=== PATIENT | male | born 1995 | race Caucasian/White ===

== ENCOUNTER 2018-10-26 14:39 | Emergency (ER) | payer MEDICAID ==
[~2018-10-26] VITALS: Ht 177.8 cm; Wt 72.6 kg
[2018-10-26 15:00] VITALS: BP 115/66
--- NOTE | 2018-10-26 15:00 | NUR ---
ED Nurse Note: Pt came in due to having discharge from an unprotected sex with a partner other than " a couple months ago" and suspects STD. Here for check up. seen by goran mathur. will continue to monitor.
--- NOTE | 2018-10-26 15:15 | NUR ---
ED Nurse Note: pt able to give urine sample and sent to lab.
--- NOTE | 2018-10-26 16:43 | Emergency Room Report ---
History of Present Illness General Chief Complaint: Male Urogenital Problems Source: Patient Present Illness HPI 23-year-old male presents to the emergency department concern for exposure to possible STD. Patient denies dysuria, penile discharge, rashes, lesions, testicular pain or swelling, swollen tender lymph nodes or joint pain. Patient states that his began having vaginal discharge and he believes this may be secondary to him having unprotected intercourse with other women. Denies fevers or chills he is requesting D&C testing as well as treatment. No other complaints at this time no aggravating or relieving factors. He denies dysuria , urinary frequency, urgency or pyuria. Allergies: Coded Allergies: No Known Allergies (Unverified , 10/26/18) Patient History Past Medical History: see triage record Past Surgical History: none Pertinent Family History: none Reviewed Nursing Documentation: PMH: Agreed; PSxH: Agreed Nursing Documentation-PMH Past Medical History: No Stated History Review of Systems All Other Systems: negative except mentioned in HPI Physical Exam Vital Signs Date Time Temp Pulse Resp B/P (MAP) Pulse Ox O2 Delivery O2 Flow Rate FiO2 10/26/18 14:46 98.6 93 20 115/66 (82) 98 Room Air Sp02 EP Interpretation: reviewed, normal General Appearance: no apparent distress, alert, GCS 15, non-toxic Head: normocephalic, atraumatic Eyes: bilateral eye normal inspection, bilateral eye PERRL ENT: hearing grossly normal, normal voice Neck: full range of motion Respiratory: lungs clear, normal breath sounds, speaking full sentences Cardiovascular #1: regular rate, rhythm Gastrointestinal: non tender, soft, non-distended, no guarding Rectal: deferred Genitourinary: normal inspection, no CVA tenderness, deferred Musculoskeletal: back normal, gait/station normal, normal range of motion, non- tender Neurologic: alert, oriented x3, responsive, motor strength/tone normal, sensory intact, speech normal, grossly normal Psychiatric: judgement/insight normal Skin: no rash Medical Decision Making PA Attestation Dr. Chong Is my supervising Physician whom patient management has been discussed with. Diagnostic Impression: Primary Impression: Contact with and (suspected) exposure to infections with a predominantly sexual mode of transmission ER Course 23-year-old male presents to the emergency department concern for exposure to possible STD. Patient denies dysuria, penile discharge, rashes, lesions, testicular pain or swelling, swollen tender lymph nodes or joint pain. Patient states that his began having vaginal discharge and he believes this may be secondary to him having unprotected intercourse with other women. Denies fevers or chills he is requesting D&C testing as well as treatment. No other complaints at this time no aggravating or relieving factors. He denies dysuria , urinary frequency, urgency or pyuria. Ddx considered but are not limited to UTi , Urethritis, LGV, STI, Stone, Cystitis, prostatitis Vital signs: are WNL, pt. is afebrile H&PE are most consistent with Urethritis ORDERS: -Urine G & C Testing : pending ED INTERVENTIONS: -250mg Rocephin IM -1G azithromycin DISCHARGE: At this time pt. is stable for d/c to home. Will provide printed patient care instructions, and any necessary prescriptions. Care plan and follow up instructions have been discussed with the patient prior to discharge. Last Vital Signs Date Time Temp Pulse Resp B/P (MAP) Pulse Ox O2 Delivery O2 Flow Rate FiO2 10/26/18 15:00 98.6 93 20 115/66 98 Room Air Disposition: HOME, SELF-CARE Condition: Stable Referrals: NOT CHOSEN IPA/MD,REFERRING (PCP) Patient Instructions: Sexually Transmitted Disease, [id number] Additional Instructions: Take any previously prescribed medications as directed. Follow up with a Primary Care Provider in 3-5 days, even if your symptoms have resolved. --Please review list of primary care clinics, if you do not already have a primary care provider Return sooner to ED if new symptoms occur, or current symptoms become worse. - Please note that this Emergency Department Report was dictated using [employer] technician technology software, occasionally this can lead to erroneous entry secondary to interpretation by the dictation equipment. Kaur Rivera Oct 26, 2018 16:43
[2018-10-26] MEDS ORDERED: Azithromycin 250mg tab ORAL ONE (16:45)
[2018-10-26] MEDS ORDERED: Lidocaine 1% MPF 10mg/ml 5ml INJ ONE (16:45)
[2018-10-26 17:12] VITALS: BP 110/64
--- NOTE | 2018-10-26 17:12 | NUR ---
ER DISCHARGE NOTE: Patient is cleared to be discharged per ERMD, pt is aox4, on room air, with stable vital signs. pt was given dc and prescription instructions, pt was able to verbalize understanding, pt id band removed without complications. pt is able to ambulate with steady gait. pt took all belongings.
== END 2018-10-26 17:12 | disposition home or self-care (01) ==
LOC: EMR 15:17
DX: Z20.2 Contact with and (suspected) exposure to infections with a predominantly sexual mode of transmission (principal)
CPT/HCPCS: 87491; 87590; 96372; 99283; J0696; Q0144